=== PATIENT | female | born 1975 | race Caucasian/White ===

== ENCOUNTER → 2017-02-27 | Outpatient (CLI) | payer BC ==
[~2017-02-27] MED LIST: BUDESUS; GADAVIST IV PRN; IBUP600T44 PO; PLMIN200 INH; PRENTAB26; SNG10 PO
--- NOTE | 2017-02-27 07:40 | DIAGNOSTIC IMAGING REPORT ---
BRAIN COMBO CLINICAL HISTORY: FACIAL DROOP, LEFT LEG WEAKNESS COMPARISON STUDY: No previous studies for comparison. TECHNIQUE: Utilizing a 1.5 Tali magnet and dedicated coil, multiplanar, multiecho imaging of the brain was performed pre and postcontrast administration. IV administration of 6 mL of Gadavist contrast was uneventful. FINDINGS: Diffusion-weighted images are negative for an acute ischemic event. Signal characteristics are unremarkable throughout the cerebellar as well as cerebral hemispheres. No abnormal postcontrast enhancement. Internal auditory canals are symmetric. Sella and parasellar regions are unremarkable. IMPRESSION: Normal study. The above report was generated using voice recognition software. It may contain grammatical, syntax or spelling errors. Electronically signed by: Darwin Martinez M.D. 02/27/2017 7:39 AM Dictated Date/Time: 02/27/2017 7:35 AM
== END | disposition home or self-care (01) ==
LOC: C.MRI 06:34
PROVIDERS: ATTEND Physician Assistant
DX: R29.810 Facial weakness (principal)